=== PATIENT | female | born 1980 | race Caucasian/White ===

== ENCOUNTER 2016-05-28 06:40 | Day surgery (SDC) | payer SELFPAY, BC ==
[~2016-05-28 06:40] MED LIST: Ondansetron 4 MG/2 ML SDV IVPUSH PRN; ceFAZolin 2 GM in Premix Bag 1 BAG IV ONE
[2016-05-28] MEDS: Lactated Ringers 1,000 ML IV SCH ×2 (06:55→20:47)
--- NOTE | 2016-05-28 06:58 | PCM.PREANE ---
Preanesthetic Assessment - Anesthesia/Transfusion/Family Hx Anesthesia History: Prior Anesthesia Without Reaction Transfusion History: No Prior Transfusion(s) - Physical Assessment O2 Sat by Pulse Oximetry: 98 Respiratory Rate: 18 Vital Signs: Last Vital Signs Temp 37.1 C 05/28/16 06:54 Pulse 86 05/28/16 06:54 Resp 18 05/28/16 06:54 BP 124/74 05/28/16 06:54 Pulse Ox 98 05/28/16 06:54 Height: 1.63 m Weight: 92.986 kg - Allergies Allergies/Adverse Reactions: Allergies Allergy/AdvReac Type Severity Reaction Status Date / Time No Known Allergies Allergy Verified 05/23/16 14:28 PreAnesthesia Questionnaire 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: Psychiatric History: Reports: Anxiety, Depression (major depression) Endocrine/Metabolic History: Reports: Hypothyroidism, Obesity/BMI 30+ - Past Surgical History Head Surgeries/Procedures: Reports: None HEENT Surgical History: Reports: Oral surgery, Tonsillectomy Female Surgical History: Reports: Tubal ligation - SUBSTANCE USE Smoking Status *Q: Never Smoker Recreational Drug Use History: No - HOME MEDS Home Medications: Home Meds Levomefolate Calcium [l-Methylfolate] 7.5 mg PO DAILY 05/23/16 [History] Levothyroxine Sodium [Synthroid] 25 mcg PO DAILY 05/23/16 [History] Venlafaxine HCl [Venlafaxine HCl ER] 225 mg PO DAILY 05/23/16 [History] - CURRENT (IN HOUSE) MEDS Current Meds: Current Medications Acetaminophen/Hydrocodone Bitart ([place] 325-5 Mg) 2 tab PO Q4H PRN PRN Reason: Pain Bupivacaine HCl/Epinephrine Bitart (Marcaine 0.25%/Epinephrine 1:200,000) 30 ml INJECT ONETIME ONE Stop: 05/28/16 08:01 Lactated Ringer's (Ringers, Lactated) 1,000 mls @ 125 mls/hr IV ASDIRECTED RIGO Last Admin: 05/28/16 06:55 Dose: 125 mls/hr Ibuprofen (Motrin) 600 mg PO Q6H PRN PRN Reason: Pain Morphine Sulfate (Morphine) 2 mg IVPUSH Q2H PRN PRN Reason: Pain Ondansetron HCl (Zofran) 4 mg IVPUSH Q4H PRN PRN Reason: Nausea Discontinued Medications Cefazolin Sodium/Dextrose 2 gm (/ Premix) 50 mls @ 100 mls/hr IV ONETIME ONE Stop: 05/27/16 18:01 Preanesthetic Assessment - ANESTHESIA/TRANSFUSION/FAMILY HX Anesthesia/Transfusion History: Prior Anesthesia Type of Anesthesia Reaction: Denies: Allergy, Anesthesia Awareness, Excessive Somnolence, Excessive Nausea/Vomiting, Excessive Itching, Excessive Shivering, Malignant Hyperthermia, Malignant Hyperthermia, Family History, Pseudocholinesterase Deficiency, Pseudocholinesterase Deficiency, Family History of, Urinary Retention, Unknown, Other (see below) Family History of Anesthesia Reaction: No Other Intubation History Comment: no known problems - REVIEW OF SYSTEMS Constitutional: Reports: no symptoms 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 Respiratory: Reports: no symptoms Cardiovascular: Reports: no symptoms GI: Reports: no symptoms Other: Reports: None - PHYSICAL ASSESSMENT O2 Sat by Pulse Oximetry: 98 RR: 18 Vital Signs: Last Vital Signs Temp 37.1 C 05/28/16 06:54 Pulse 86 05/28/16 06:54 Resp 18 05/28/16 06:54 BP 124/74 05/28/16 06:54 Pulse Ox 98 05/28/16 06:54 Height: 1.63 m Weight: 92.986 kg ASA Class: 2 Airway Class: Mallampati = 2 Dentition: Reports: Normal Dentition Thyro-Mental Finger Breadths: 3 Mouth Opening Finger Breadths: 2 ROM/Head Extension: Full Respiratory Status: lungs clear to auscultation bilaterally Cardiovascular Status: regular rate & rhythm, normal S1, S2, no murmur, blood pressure WNL - ALLERGIES Allergies/Adverse Reactions: Allergies Allergy/AdvReac Type Severity Reaction Status Date / Time No Known Allergies Allergy Verified 05/23/16 14:28 - BLOOD Blood Available: No - ANESTHESIA PLAN Preop Beta Mariaelena: No Anesthesia Type Planned: General Anesthesia - ACKNOWLEDGEMENTS Pt an Appropriate Candidate for the Planned Anesthesia: Yes Alternatives and Risks of Anesthesia Discussed w Pt/Guardian: Yes Pt/Guardian Understands and Agrees with Anesthesia Plan: Yes
[2016-05-28] MEDS ORDERED: Ibuprofen 600 MG Tab PO PRN (07:00)
[2016-05-28] MEDS ORDERED: Morphine 2 MG/ML Syringe IVPUSH PRN (07:00)
[2016-05-28] MEDS ORDERED: Lidocaine 2% 5 ML SDV ONE (07:29)
[2016-05-28] MEDS ORDERED: Ondansetron 4 MG/2 ML SDV ONE (07:29)
[2016-05-28] MEDS ORDERED: Rocuronium 10 MG/ML 10 ML Syringe ONE (07:29)
[2016-05-28] MEDS ORDERED: Propofol 200 MG/20 ML SDV ONE (07:29)
[2016-05-28] MEDS ORDERED: Midazolam 1 MG/ML 2 ML SDV ONE (07:29)
[2016-05-28] MEDS ORDERED: fentaNYL 250 MCG/5 ML SDV ONE (07:30)
[2016-05-28] MEDS ORDERED: HYDROmorphone 2 MG/ML Syringe ONE ×2 (07:30→09:23)
[2016-05-28] MEDS ORDERED: Bupivacaine 0.25%/EPINEPHrine 1:200,000 10 ML SDV ONE (07:47)
[2016-05-28] MEDS ORDERED: Bupivacaine 0.25%/EPINEPHrine 1:200,000 10 ML SDV INJECT ONE (08:00)
[2016-05-28] MEDS ORDERED: Scopolamine 1.5 MG Transdermal Patch ONE (08:26)
[2016-05-28] MEDS ORDERED: Dexamethasone 4 MG/ML 5 ML MDV ONE (08:41)
[2016-05-28] MEDS ORDERED: diphenhydrAMINE 50 MG/ML SDV ONE (08:41)
[2016-05-28] MEDS ORDERED: ceFAZolin 1 GM Vial ONE (08:47)
[2016-05-28] MEDS ORDERED: Bupivacaine Liposome 1.3% 20 ML SDV INJECT ONE (09:17)
[2016-05-28] MEDS ORDERED: fentaNYL 100 MCG/2 ML SDV IVPUSH PRN (09:40)
[2016-05-28] MEDS ORDERED: Octyl 2-Cyanoacrylate 1 Tube ONE (10:53)
[2016-05-28] MEDS ORDERED: ePHEDrine 50 MG/ML SDV ONE (11:07)
--- NOTE | 2016-05-28 11:39 | PCM.PREANE ---
Preanesthetic Assessment - Anesthesia/Transfusion/Family Hx Anesthesia History: Prior Anesthesia Without Reaction Transfusion History: No Prior Transfusion(s) Intubation History: History of Difficulty Intubation (Grade III-IV with Andersen 2 (for abdominoplasty) - bougie used along with corkscrew method to place tube. Anterior and small mouth.) - Review of Systems Other: Reports: None - Physical Assessment NPO Status Date: 05/27/16 NPO Status Time: 20:00 O2 Sat by Pulse Oximetry: 98 Respiratory Rate: 18 Vital Signs: Last Vital Signs Temp 98.7 F 05/28/16 06:54 Pulse 86 05/28/16 06:54 Resp 18 05/28/16 06:58 BP 124/74 05/28/16 06:54 Pulse Ox 98 05/28/16 06:58 Height: 5 ft 4 in Weight: 205 lb - Lab Values: Laboratory Last Values Urine HCG, Qual NEGATIVE (NEGATIVE) 05/28/16 06:45 - Allergies Allergies/Adverse Reactions: Allergies Allergy/AdvReac Type Severity Reaction Status Date / Time No Known Allergies Allergy Verified 05/23/16 14:28 - Blood Blood Available: No PreAnesthesia Questionnaire 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 History: 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: Psychiatric History: Reports: Anxiety, Depression Endocrine/Metabolic History: Reports: Hypothyroidism, Obesity/BMI 30+ - Past Surgical History Head Surgeries/Procedures: Reports: None HEENT Surgical History: Reports: Oral surgery, Tonsillectomy Female Surgical History: Reports: Tubal ligation - SUBSTANCE USE Smoking Status *Q: Never Smoker Recreational Drug Use History: No - HOME MEDS Home Medications: Home Meds Levomefolate Calcium [l-Methylfolate] 7.5 mg PO DAILY 05/23/16 [History] Levothyroxine Sodium [Synthroid] 25 mcg PO DAILY 05/23/16 [History] Venlafaxine HCl [Venlafaxine HCl ER] 225 mg PO DAILY 05/23/16 [History] - CURRENT (IN HOUSE) MEDS Current Meds: Current Medications Acetaminophen/Hydrocodone Bitart ([place] 325-5 Mg) 2 tab PO Q4H PRN PRN Reason: Pain Fentanyl (Sublimaze) 50 mcg IVPUSH .Q5MIN PRN PRN Reason: Pain Stop: 06/01/16 09:41 Lactated Ringer's (Ringers, Lactated) 1,000 mls @ 125 mls/hr IV ASDIRECTED RIGO Last Admin: 05/28/16 06:55 Dose: 125 mls/hr Ibuprofen (Motrin) 600 mg PO Q6H PRN PRN Reason: Pain Morphine Sulfate (Morphine) 2 mg IVPUSH Q2H PRN PRN Reason: Pain Ondansetron HCl (Zofran) 4 mg IVPUSH Q4H PRN PRN Reason: Nausea Discontinued Medications Bupivacaine HCl/Epinephrine Bitart ([place] 0.25%/Epinephrine 1:200,000) 30 ml INJECT ONETIME ONE Stop: 05/28/16 08:01 Bupivacaine HCl/Epinephrine Bitart ([place] 0.25%/Epinephrine 1:200,000) Confirm Administered Dose 40 ml .ROUTE .STK-MED ONE Stop: 05/28/16 07:48 Bupivacaine Liposome (Exparel) 0 ml INJECT .STK-MED ONE Stop: 05/28/16 09:18 Cefazolin Sodium (Ancef) Confirm Administered Dose 2 gm .ROUTE .STK-MED ONE Stop: 05/28/16 08:48 Dexamethasone (Dexamethasone) Confirm Administered Dose 20 mg .ROUTE .STK-MED ONE Stop: 05/28/16 08:42 Diphenhydramine HCl (Benadryl) Confirm Administered Dose 50 mg .ROUTE .STK-MED ONE Stop: 05/28/16 08:42 Ephedrine Sulfate (Ephedrine Sulfate) Confirm Administered Dose 50 mg .ROUTE .STK-MED ONE Stop: 05/28/16 11:08 Fentanyl (Sublimaze) Confirm Administered Dose 250 mcg .ROUTE .STK-MED ONE Stop: 05/28/16 07:31 Hydromorphone HCl (Dilaudid) Confirm Administered Dose 2 mg .ROUTE .STK-MED ONE Stop: 05/28/16 07:31 Hydromorphone HCl (Dilaudid) Confirm Administered Dose 2 mg .ROUTE .STK-MED ONE Stop: 05/28/16 09:24 Cefazolin Sodium/Dextrose 2 gm (/ Premix) 50 mls @ 100 mls/hr IV ONETIME ONE Stop: 05/27/16 18:01 Lidocaine (Xylocaine-Mpf 2%) Confirm Administered Dose 5 ml .ROUTE .STK-MED ONE Stop: 05/28/16 07:30 Midazolam HCl (Versed 1 Mg/Ml) Confirm Administered Dose 2 mg .ROUTE .STK-MED ONE Stop: 05/28/16 07:30 Octyl Cyanoacrylate (Dermabond Advance) Confirm Administered Dose 1 applic .ROUTE .STK-MED ONE Stop: 05/28/16 10:54 Ondansetron HCl (Zofran) Confirm Administered Dose 4 mg .ROUTE .STK-MED ONE Stop: 05/28/16 07:30 Propofol (Diprivan 20 Ml) Confirm Administered Dose 200 mg .ROUTE .STK-MED ONE Stop: 05/28/16 07:30 Rocuronium [place] (Zemuron) Confirm Administered Dose 100 mg .ROUTE .STK-MED ONE Stop: 05/28/16 07:30 Scopolamine (Transderm-Scop) Confirm Administered Dose 1.5 mg .ROUTE .STK-MED ONE Stop: 05/28/16 08:27 Preanesthetic Assessment - ANESTHESIA/TRANSFUSION/FAMILY HX Anesthesia/Transfusion History: Prior Anesthesia Type of Anesthesia Reaction: Denies: Allergy, Anesthesia Awareness, Excessive Somnolence, Excessive Nausea/Vomiting, Excessive Itching, Excessive Shivering, Malignant Hyperthermia, Malignant Hyperthermia, Family History, Pseudocholinesterase Deficiency, Pseudocholinesterase Deficiency, Family History of, Urinary Retention, Unknown, Other (see below) Family History of Anesthesia Reaction: No Other Intubation History Comment: no known problems - REVIEW OF SYSTEMS Constitutional: Reports: 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 Respiratory: Reports: no symptoms Cardiovascular: Reports: no symptoms GI: Reports: no symptoms Other: Reports: None - PHYSICAL ASSESSMENT O2 Sat by Pulse Oximetry: 98 RR: 18 Vital Signs: Last Vital Signs Temp 98.7 F 05/28/16 06:54 Pulse 86 05/28/16 06:54 Resp 18 05/28/16 06:58 BP 124/74 05/28/16 06:54 Pulse Ox 98 05/28/16 06:58 Height: 5 ft 4 in Weight: 205 lb NPO Status Date: 05/27/16 NPO Status Time: 20:00 - LAB Values: Laboratory Last Values Urine HCG, Qual NEGATIVE (NEGATIVE) 05/28/16 06:45 - ALLERGIES Allergies/Adverse Reactions: Allergies Allergy/AdvReac Type Severity Reaction Status Date / Time No Known Allergies Allergy Verified 05/23/16 14:28 - BLOOD Blood Available: No
[2016-05-28] MEDS ORDERED: Promethazine 25 MG Tab PO PRN (15:04)
--- NOTE | 2016-05-28 15:15 | PCM.OPNOTE ---
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
[2016-05-28] MEDS: Acetaminophen/HYDROcodone 325-5 MG Tab PO PRN (21:00)
[2016-05-28] MEDS ORDERED: LEVOMEFOLATE CALCIUM 7.5 MG PO SCH (21:30)
[2016-05-28] MEDS ORDERED: Venlafaxine 75 MG Cap.ER PO SCH (21:36)
[2016-05-29] MEDS ORDERED: Levothyroxine 25 MCG Tab PO SCH (07:30)
[2016-05-29] MEDS: Acetaminophen/HYDROcodone 325-5 MG Tab PO PRN (09:09)
--- NOTE | 2016-05-29 11:51 | PCM48HPAN ---
Post Anesthesia Note - EVALUATION WITHIN 48HRS OF ANESTHETIC Vital Signs in Normal Range: Yes Patient Participated in Evaluation: Yes Respiratory Function Stable: Yes Airway Patent: Yes Cardiovascular Function Stable: Yes Hydration Status Stable: Yes Pain Control Satisfactory: Yes Nausea and Vomiting Control Satisfactory: Yes Mental Status Recovered: Yes
[2016-05-29 12:24] VITALS: BP 117/60
--- NOTE | 2016-05-29 12:58 | PCM.PN ---
- General Info Date of Service: 05/29/16 Admission Dx/Problem (Free Text): s/ p abdominoplasty pod 1 Subjective Update: feeling well. Nausea improved after one emesis. otherwise doing quite well. Functional Status: Reports: pain controlled, tolerating diet, ambulating - Review of Systems General: Reports: No Symptoms Pulmonary: Reports: no symptoms Musculoskeletal: Reports: no symptoms Skin: Reports: no symptoms Neurological: Reports: No Symptoms Psychiatric: Reports: no symptoms - Patient Data Vitals - most recent: Last Vital Signs Temp 96.2 F 05/29/16 12:00 Pulse 99 05/29/16 12:00 Resp 18 05/29/16 12:00 BP 117/60 05/29/16 12:00 Pulse Ox 96 05/29/16 12:00 Weight - most recent: 205 lb I&O - last 24 hours: Intake & Output 05/28/16 05/29/16 05/29/16 23:59 07:59 15:59 Intake Total 1600 1500 Output Total 110 2208 27 Balance 1490 -708 -27 Med Orders - Current: Current Medications Acetaminophen/Hydrocodone Bitart ([place] 325-5 Mg) 2 tab PO Q4H PRN PRN Reason: Pain Last Admin: 05/29/16 09:09 Dose: 2 tab Lactated Ringer's (Ringers, Lactated) 1,000 mls @ 125 mls/hr IV ASDIRECTED [facility] Last Admin: 05/28/16 20:47 Dose: 125 mls/hr Ibuprofen (Motrin) 600 mg PO Q6H PRN PRN Reason: Pain Levothyroxine Sodium (Levothyroxine) 25 mcg PO ACBREAKFAST [facility] Last Admin: 05/29/16 06:43 Dose: 25 mcg Morphine Sulfate (Morphine) 2 mg IVPUSH Q2H PRN PRN Reason: Pain Own Med Levomefolate Calcium [L-Methylfolate] 7. 5 Mg 7.5 mg PO BEDTIME [facility] Last Admin: 05/28/16 21:53 Dose: 7.5 mg Ondansetron HCl (Zofran) 4 mg IVPUSH Q4H PRN PRN Reason: Nausea Last Admin: 05/28/16 15:02 Dose: 4 mg Promethazine HCl (Phenergan) 25 mg PO Q4H PRN PRN Reason: Nausea/Vomiting Last Admin: 05/28/16 16:00 Dose: 25 mg Venlafaxine HCl (Effexor Xr) 225 mg PO BEDTIME [facility]IGO Last Admin: 05/28/16 21:53 Dose: 225 mg Discontinued Medications Bupivacaine HCl/Epinephrine Bitart ([place] 0.25%/Epinephrine 1:200,000) 30 ml INJECT ONETIME ONE Stop: 05/28/16 08:01 Bupivacaine HCl/Epinephrine Bitart ([place] 0.25%/Epinephrine 1:200,000) Confirm Administered Dose 40 ml .ROUTE .STK-MED ONE Stop: 05/28/16 07:48 Bupivacaine Liposome (Exparel) 0 ml INJECT .STK-MED ONE Stop: 05/28/16 09:18 Cefazolin Sodium (Ancef) Confirm Administered Dose 2 gm .ROUTE .STK-MED ONE Stop: 05/28/16 08:48 Dexamethasone (Dexamethasone) Confirm Administered Dose 20 mg .ROUTE .STK-MED ONE Stop: 05/28/16 08:42 Diphenhydramine HCl (Benadryl) Confirm Administered Dose 50 mg .ROUTE .STK-MED ONE Stop: 05/28/16 08:42 Ephedrine Sulfate (Ephedrine Sulfate) Confirm Administered Dose 50 mg .ROUTE .STK-MED ONE Stop: 05/28/16 11:08 Fentanyl (Sublimaze) Confirm Administered Dose 250 mcg .ROUTE .STK-MED ONE Stop: 05/28/16 07:31 Fentanyl (Sublimaze) 50 mcg IVPUSH .Q5MIN PRN PRN Reason: Pain Stop: 06/01/16 09:41 Hydromorphone HCl (Dilaudid) Confirm Administered Dose 2 mg .ROUTE .STK-MED ONE Stop: 05/28/16 07:31 Hydromorphone HCl (Dilaudid) Confirm Administered Dose 2 mg .ROUTE .STK-MED ONE Stop: 05/28/16 09:24 Cefazolin Sodium/Dextrose 2 gm (/ Premix) 50 mls @ 100 mls/hr IV ONETIME ONE Stop: 05/27/16 18:01 Lidocaine (Xylocaine-Mpf 2%) Confirm Administered Dose 5 ml .ROUTE .STK-MED ONE Stop: 05/28/16 07:30 Midazolam HCl (Versed 1 Mg/Ml) Confirm Administered Dose 2 mg .ROUTE .STK-MED ONE Stop: 05/28/16 07:30 Octyl Cyanoacrylate (Dermabond Advance) Confirm Administered Dose 1 applic .ROUTE .STK-MED ONE Stop: 05/28/16 10:54 Ondansetron HCl (Zofran) Confirm Administered Dose 4 mg .ROUTE .STK-MED ONE Stop: 05/28/16 07:30 Propofol (Diprivan 20 Ml) Confirm Administered Dose 200 mg .ROUTE .STK-MED ONE Stop: 05/28/16 07:30 Rocuronium [place] (Zemuron) Confirm Administered Dose 100 mg .ROUTE .STK-MED ONE Stop: 05/28/16 07:30 Scopolamine (Transderm-Scop) Confirm Administered Dose 1.5 mg .ROUTE .STK-MED ONE Stop: 05/28/16 08:27 Venlafaxine HCl (Effexor Xr) 225 mg PO BEDTIME RIGO - Exam General: alert, oriented, cooperative HEENT: Pupils reactive Lungs: Normal respiratory effort Extremities: no edema Skin: warm, dry Wound/Incisions: healing well, dressing dry and intact (removed and changed - minimal drainage on dressing. Swelling as expected. ), drainage (serosangionous in SILKE. ) Neurological: no new focal deficit Psy/Mental Status: alert, normal affect - Problem List & Annotations (1) Status post abdominoplasty SNOMED Code(s): 278628423, 719414630 Code(s): Z98.890 - OTHER SPECIFIED POSTPROCEDURAL STATES Status: Acute Current Visit: Yes - Problem List Review Problem List Initiated/Reviewed/Updated: Yes - My Orders Last 24 Hours: My Active Orders 05/28/16 12:00 Patient Status [ADT] Routine Abdominal Binder [OM.PC] Routine 05/28/16 14:00 Drain Management [RC] Q4H Positioning, Patient [RC] ASDIRECTED 05/28/16 15:04 Promethazine [Phenergan] 25 mg PO Q4H PRN 05/28/16 19:17 Communication Order [RC] ASDIRECTED 05/28/16 21:30 Levomefolate Calcium [l-Methylfolate] 7.5 mg PO BEDTIME 05/28/16 21:36 Venlafaxine [Effexor XR] 225 mg PO BEDTIME 05/28/16 Dinner Regular Diet [DIET] 05/29/16 07:30 Levothyroxine 25 mcg PO ACBREAKFAST 05/29/16 12:56 Ready for Discharge [RC] PER UNIT ROUTINE - Plan Plan:: home today on po keflex and zofran if needed. [place] for pain control.
--- NOTE | 2016-05-29 17:55 | OR ---
SURGEON: JONH BOATENG MD SALESPERSON WOMEN'S HATS: GILMAR Reveles DATE OF PROCEDURE: 05/28/2016 PREOPERATIVE DIAGNOSIS: Desire for cosmetic abdominoplasty. POSTOPERATIVE DIAGNOSIS: Desire for cosmetic abdominoplasty. PROCEDURES: Abdominoplasty with umbilicoplasty. INDICATIONS: Ms. Fleming is a 36-year-old female with abdominal skin laxity and excess skin. Risks and benefits of abdominoplasty with umbilicoplasty were discussed with her and she was in agreement to proceed. Risks were including, but not limited to, bleeding, infection, damage to underlying or overlying structures, possible need for future interventions, and possible scarring. PROCEDURE IN DETAIL: After informed consent was obtained and placed on the chart, the patient was brought to the operating theater and laid in the supine position. After adequate level of general LMA anesthesia was obtained, the area was prepped and draped, and a time-out was completed to confirm side and site. Attention was then paid to the lower incision. The pre-planned incision line was dissected and the abdominal skin flap was elevated up to the xiphoid process laterally taking care to spare any of the muscular nerves. Once this was elevated, attention was then paid to redraping of the skin. It was appreciated that she had significant abdominal laxity and thus a midline plication was completed. After plication, attention was then paid to redraping of the skin. The patient was sat-up 30 degrees. The skin was redraped appropriately and the excess was trimmed. A total of 4 pounds was removed. In addition, the subcutaneous fat layer under Lien's fascia was also appreciated to be thickened and this was trimmed as well. Once adequate hemostasis, attention was then paid to plication stitches, which were done along the lateral border of the rectus muscle. This was done all the way down to the inferior incision and the incision was reapproximated and the belly button was measured at the new position, so the belly button was marked on the skin flap. After copious irrigation and meticulous hemostasis, the skin was then closed using deep 2-0 PDS sutures, 3-0 Monocryl for the skin dermis, and a running 4-0 subcuticular for the skin. The belly button was also closed using deep 4-0 Monocryl stitches and Dermabond for the skin with glue. Prior to closure, 2 size 10 SILKE drains were placed and they were sutured in place at the lateral portion of the incision using 4-0 Prolene stitches. She tolerated this well. These were dressed with Xeroform and an incision was dressed with Steri-Strips. Belly button was dressed with a nonstick dressing. These were sutured in place using tape and a binder. The patient will be maintained in the hospital overnight. All counts of needles were correct at the end of the case and the patient tolerated the procedure well. FOLLOWUP INSTRUCTIONS: The patient will stay with us overnight. We will maintain for pain control. PAM / RITESH /[id number] PADMA
[2016-05-29] MEDS ORDERED: Venlafaxine 75 MG Cap.ER PO SCH (21:00)
== END 2016-05-29 15:37 ==
LOC: MW.SDS 06:40 → MW.MS 14:57 → UNDOADMOB 14:57 → UNDODISOB 05-29 13:30 → MW.SDS 05-29 15:37
PROVIDERS: ATTEND Plastic Surgery
PROC: 0J080ZZ Alteration of Abdomen Subcutaneous Tissue and Fascia, Open Approach (ICD-10-PCS; principal; 2016-05-28)
DX: Z41.1 Encounter for cosmetic surgery (principal); F32.9 Major depressive disorder, single episode, unspecified; F41.9 Anxiety disorder, unspecified; R63.5 Abnormal weight gain; R76.8 Other specified abnormal immunological findings in serum; Z79.899 Other long term (current) drug therapy
CPT/HCPCS: 15830; 15847; 81025; A9270; J0690; J1100; J1170; J1200; J2250; J2405; J3010; J7120; 00802; J2704